=== PATIENT | female | born 1975 ===

== ENCOUNTER 2017-02-12 11:50 | Emergency (ER) | payer BC ==
[2017-02-12] MEDS ORDERED: Tetan/Diph/Pertus SYR(Tdap)* 0.5 ML SYR(BOOSTRIX) use SYR IM ONE (12:56)
[2017-02-12] MEDS ORDERED: Amoxicillin/Clavulanate TAB* 875 MG PO ONE (13:07)
--- NOTE | 2017-02-12 13:13 | UC ---
Bite Injury/Animal HPI - HPI Summary HPI Summary: 41 yo WF s/p dog bite on face. Pt and daughter was petting a lost dog on a road , had a loose collar and tags on its neck but no guest relations associate nearby, pt went to pet the dog and bit her face in 2 places. Denies f/c - History of Current Complaint Chief Complaint: UCBiteInjury Stated Complaint: DOG BITE Hx Last Menstrual Period: 02/08/17 Severity Currently: Mild Severity Initially: Moderate Onset/Duration: Sudden Onset Has Animal Been Immunized?: Unknown - but has collar and tags Character: Puncture, Abrasion/Laceration Associated Signs And Symptoms: Positive: Negative Animal Available for Observation: No - Allergies/Home Medications Allergies/Adverse Reactions: Allergies Allergy/AdvReac Type Severity Reaction Status Date / Time No Known Allergies Allergy Verified 02/12/17 12:17 Home Medications: Home Medications Escitalopram Oxalate [Lexapro 10 mg] 10 mg PO DAILY 02/12/17 [History Confirmed 02/12/17] PMH/Surg Hx/FS Hx/Imm Hx - Surgical History Surgical History: Yes Surgery Procedure, Year, and Place: left foot surgery 03/2016 - Social History Alcohol Use: Rare Substance Use Type: None Smoking Status (MU): Never Smoked Tobacco - Immunization History Most Recent Influenza Vaccination: 11/2016 Most Recent Tetanus Shot: unknown Review of Systems Constitutional: Negative Skin: Other - Dog bite on face Eyes: Negative ENT: Negative Respiratory: Negative Cardiovascular: Negative Gastrointestinal: Negative Genitourinary: Negative Motor: Negative Neurovascular: Negative Musculoskeletal: Negative Neurological: Negative Psychological: Negative All Other Systems Reviewed And Are Negative: Yes Physical Exam Triage Information Reviewed: Yes Vital Signs: Initial Vital Signs Temp 37.0 C 02/12/17 12:12 Pulse 88 02/12/17 12:12 Resp 16 02/12/17 12:12 BP 132/81 02/12/17 12:12 Pulse Ox 99 02/12/17 12:12 Eye Exam: Normal ENT Exam: Normal Dental Exam: Normal Neck exam: Normal Neck: Positive: 1 Respiratory Exam: Normal Cardiovascular Exam: Normal Abdominal Exam: Normal Musculoskeletal Exam: Normal Neurological Exam: Normal Psychological Exam: Normal Skin: Positive: significant lesion(s) - right upper cheek and left lower cheeck closed 4-5mm laceration c/w dog bite Bite Injury Course/Dx - Course Course Of Treatment: Tdap IM and Augmentin 875 PO administered, pt to finish rest of 10 days total of Augmentin PO BID x 10 days. Charge nurse called [facility] but advised AGAINST PEP rabies vaccine course since the dog had collar and tag on. Pt to f/u with PCP in [place] - Differential Dx/Diagnosis Provider Diagnoses: dog bite Discharge - Discharge Plan Condition: Stable Disposition: HOME Prescriptions: Amoxicillin/Clavulanate TAB* [Augmentin TAB 875*] 875 mg PO BID 10 Days #20 tab Patient Education Materials: Animal Bite (ED) Referrals: No Primary Care Phys,NOPCP [Primary Care Provider] - Additional Instructions: As tolerated, f/U with PCP Dr Angel w/i one week
[2017-02-12 14:12] VITALS: BP 133/89
== END 2017-02-12 14:03 | disposition home or self-care (01) ==
LOC: UCEAST 11:50
DX: S01.452A Open bite of left cheek and temporomandibular area, initial encounter (principal); S01.451A Open bite of right cheek and temporomandibular area, initial encounter; W54.0XXA Bitten by dog, initial encounter; Y93.89 Activity, other specified; Y92.413 State road as the place of occurrence of the external cause; Y99.9 Unspecified external cause status
CPT/HCPCS: 90471; 90715; 99202; A9270-GY; G0463